=== PATIENT | male | born 1950 | race Hispanic/Latino ===

== ENCOUNTER 2022-05-22 11:11 | Inpatient (IN) | payer MEDICARE, OTHER ==
[2022-05-22] MEDS ORDERED: Diazepam 10 MG/2 ML SYRINGE ONE (11:27)
[2022-05-22] MEDS ORDERED: levETIRAcetam 500 MG/5 ML VIAL ONE (11:43)
[2022-05-22 11:52] LABS: Analyzer IN Cardio ER; Base Excess -13.3 mEq/L (-2.0 to +3.0); Calcium, Ionized (venous) 0.92 mmol/L (1.16-1.32); Chloride (VBG) 100 mmol/L (98-106); Potassium (VBG) 3.72 mmol/L (3.70-5.30); Sodium 131.8 mmol/L (133-146); pH (venous) 7.27 (7.32-7.43)
[2022-05-22 11:57] LABS: Actual Bicarbonate (HCO3v) 12 mEq/L (22-28)
[2022-05-22] MEDS ORDERED: Fosphenytoin Sodium 500 mg/10 ml Vial ONE ×2 (12:09→12:11)
[2022-05-22 12:17] LABS: #Lymphocytes 2.3 thou/uL (1.20-3.40); #Monocytes 0.5 thou/uL (0.11-0.59); #Neutrophils 4.3 thou/uL (1.40-6.50); %Basophils 0.6 % (0.0-1.0); %Eosinophils 0.4 % (0.0-10.0); %Lymphocytes 32.1 % (21.0-51.0); %Monocytes 6.3 % (0.0-10.0); %Neutrophils 60.6 % (42.0-75.0); Hemoglobin 13.5 g/dL (14.0-18.0); Mean Corpuscular HGB CONC 33.3 g/dL (32.0-36.0); Mean Corpuscular Hemoglobin 36.1 pg (27.0-31.0); Platelet Count 199 thou/uL (130-400); RBC Distribution Width 11.5 % (11.5-14.5); Red Blood Cell (RBC) Count 3.74 mill/uL (4.70-6.10); White Blood Cell (WBC) Count 7.1 thou/uL (4.8-10.8)
[2022-05-22 12:20] LABS: Carbamazepine-Tegretol Less than 1.9 ug/mL (4.0-12.0)
[2022-05-22 12:22] LABS: Acetaminophen Less than 10.0 mcg/mL (10.0-30.0); Alcohol Less than 10 mg/dL (Less than 10); CK (CPK) 387 U/L (30-200); Magnesium 1.9 mg/dL (1.6-2.6); Salicylate Less than 8.0 mg/dL (15.0-30.0)
[2022-05-22 12:25] LABS: ALT (SGPT) 44 U/L (8-55); AST (SGOT) 89 U/L (5-34); Albumin 4.5 g/dL (3.4-4.8); Alkaline Phosphatase 110 U/L (40-110); Anion Gap 25 mmol/L (10-20); BUN (Urea Nitrogen) 10 mg/dL (8.4-25.7); Bilirubin, Total 0.6 mg/dL (0.2-1.2); Calc. Creatinine Clearance 0 mL/min (70-130); Calcium 9.2 mg/dL (7.8-10.44); Carbon Dioxide 15 mmol/L (23-31); Chloride 100 mmol/L (98-107); Estimated GFR 82; Globulin 3.9 g/dL (2.4-3.5); Glucose 190 mg/dL (80-115); Potassium 3.7 mmol/L (3.5-5.1); Protein, Total 8.4 g/dL (5.8-8.1); Sodium 136 mmol/L (136-145)
[2022-05-22 12:33] LABS: INR-International Normal Ratio 1.1; PTT 30.8 sec (22.9-36.1); Prothrombin Time 14.1 sec (12.0-14.7)
[2022-05-22] MEDS ORDERED: Midazolam HCl 2 mg/2 ml Vial ONE (13:48)
[2022-05-22 14:04] LABS: Bilirubin Negative (Negative); Blood, Urine Negative (Negative); Clarity Clear (Clear); Glucose, Urine (Dipstick) Normal (Negative); Ketone, Urine Negative (Negative); Leukocyte Negative Leu/uL (Negative); Nitrite Negative (Negative); Protein, Urine (Dipstick) Negative (Neg-Trace); Urobilinogen Normal mg/dL (Less than 2); pH, Urine 6.5 (5.0-9.0)
[2022-05-22 14:12] LABS: Amphetamine Not Detected (NotDetected); Barbiturates Screen Detected (NotDetected); Benzodiazepine Screen Not Detected (NotDetected); Cocaine Metabolite Screen Not Detected (NotDetected); Methadone Not Detected (NotDetected); Methamphetamine Not Detected (NotDetected); Opiate Screen Not Detected (NotDetected); Oxycodone Screen Not Detected (NotDetected); Phencyclidine (PCP) Not Detected (NotDetected); THC/Cannabinoid Screen Not Detected (NotDetected); Tricyclic Screen Not Detected (NotDetected)
[2022-05-22] MEDS ORDERED: Multivitamins, Adult 10 ML, Thiamine HCl 100 MG, Folic Acid 1 MG in Dextrose 5 %-0.45 %... IV SCH (14:30)
[2022-05-22 15:06] LABS: Lactic Acid 1.4 mmol/L (0.5-2.2)
[2022-05-22 15:18] LABS: SARS-CoV-2 NAA Rapid Test Not Detected (NotDetected)
[2022-05-22] MEDS ORDERED: Sodium Chloride 0.65% Nasal 44 ML BOT EA NARE PRN (15:32)
[2022-05-22] MEDS ORDERED: Lorazepam 1 MG TAB PO PRN (15:32)
[2022-05-22] MEDS ORDERED: Labetalol HCl 100 MG/20 ML VIAL SLOW IVP PRN (15:32)
[2022-05-22] MEDS ORDERED: hydrALAZINE 20 MG/ML VIAL SLOW IVP PRN (15:32)
[2022-05-22] MEDS ORDERED: Moisturizing Cream (Eucerin) 113 GM JAR TOP PRN (15:32)
[2022-05-22] MEDS ORDERED: Ondansetron ODT 4 MG TAB PO PRN (15:32)
[2022-05-22] MEDS ORDERED: Electrolyte Replacement Protocol 1 EACH FS SCH (15:45)
[2022-05-22] MEDS ORDERED: Cepastat Lozenges 1 LOZ PO PRN (15:47)
[2022-05-22] MEDS ORDERED: Loperamide HCl 2 MG CAP PO PRN ×2 (15:47)
[2022-05-22] MEDS ORDERED: Diazepam 10 MG/2 ML SYRINGE IVP PRN (15:52)
[2022-05-22] MEDS ORDERED: Acetaminophen 325 MG Suppository ONE (16:06)
[2022-05-22] MEDS ORDERED: Acetaminophen 650 MG Suppository PR PRN (16:15)
[2022-05-22] MEDS ORDERED: Lorazepam 1 MG TAB ONE (16:38)
[2022-05-22 16:41] LABS: #Lymphocytes 1.1 thou/uL (1.20-3.40); #Monocytes 0.5 thou/uL (0.11-0.59); #Neutrophils 5.9 thou/uL (1.40-6.50); %Basophils 0.4 % (0.0-1.0); %Eosinophils 0.1 % (0.0-10.0); %Lymphocytes 14.3 % (21.0-51.0); %Monocytes 6.5 % (0.0-10.0); %Neutrophils 78.8 % (42.0-75.0); Mean Corpuscular HGB CONC 34.1 g/dL (32.0-36.0); Mean Corpuscular Hemoglobin 36.2 pg (27.0-31.0); Mean Platelet Volume 7.6 fL (7.4-10.4); Platelet Count 170 thou/uL (130-400); RBC Distribution Width 11.5 % (11.5-14.5); White Blood Cell (WBC) Count 7.5 thou/uL (4.8-10.8)
[2022-05-22] MEDS: Lorazepam 1 MG TAB PO SCH ×2 (16:42→22:02)
[2022-05-22 16:46] LABS: Bilirubin, Direct 0.2 mg/dL (0.1-0.3); Phosphorus 2.5 mg/dL (2.3-4.7)
[2022-05-22] MEDS ORDERED: PHENobarbital 32.4 MG TAB PO SCH (17:00)
[2022-05-22 17:22] VITALS: BMI 24.5
[2022-05-22] MEDS ORDERED: Sterile Water 10 ML ONE (17:32)
[2022-05-22] MEDS: PHENobarbital Sodium 65 MG/ML VIAL SLOW IVP SCH (17:39)
[2022-05-22] MEDS: Thiamine HCl 200 MG/2 ML VIAL SLOW IVP SCH (20:01)
[2022-05-22] MEDS: Lactated Ringer's 1,000 ML IV SCH (20:01)
[2022-05-22] MEDS: Acetaminophen 325 MG TAB PO PRN (20:10)
[2022-05-22] MEDS: Famotidine 20 MG TAB PO SCH (20:11)
[2022-05-22] MEDS: Fosphenytoin Sodium 200 MG in Sodium Chloride 0.9% 50 ML IVPB SCH (20:17)
[2022-05-22] MEDS ORDERED: Magnesium 2 GM/50 ML(in water) 2 GM in Premix Bag 1 BAG IVPB SCH (21:00)
[2022-05-22] MEDS: levETIRAcetam 500 MG/5 ML VIAL SLOW IVP SCH (22:02)
[2022-05-22 23:40] LABS: Syphilis Antibody INDETERMINATE (Nonreactive)
[2022-05-23] MEDS: PHENobarbital Sodium 65 MG/ML VIAL SLOW IVP SCH ×2 (01:40→10:41)
[2022-05-23] MEDS ORDERED: Sterile Water 10 ML ONE (01:45)
[2022-05-23 04:05] LABS: #Neutrophils 5.8 thou/uL (1.40-6.50); %Basophils 0.1 % (0.0-1.0); %Eosinophils 0.2 % (0.0-10.0); %Lymphocytes 22.7 % (21.0-51.0); %Monocytes 11.5 % (0.0-10.0); %Neutrophils 65.4 % (42.0-75.0); Hemoglobin 13.6 g/dL (14.0-18.0); Mean Corpuscular HGB CONC 34.5 g/dL (32.0-36.0); Mean Corpuscular Hemoglobin 36.5 pg (27.0-31.0); Mean Platelet Volume 7.8 fL (7.4-10.4); Platelet Count 156 thou/uL (130-400); RBC Distribution Width 11.5 % (11.5-14.5); Red Blood Cell (RBC) Count 3.71 mill/uL (4.70-6.10); White Blood Cell (WBC) Count 8.8 thou/uL (4.8-10.8)
[2022-05-23] MEDS: Lorazepam 1 MG TAB PO SCH ×4 (04:23→22:29)
[2022-05-23 05:19] LABS: ALT (SGPT) 31 U/L (8-55); AST (SGOT) 56 U/L (5-34); Albumin 3.6 g/dL (3.4-4.8); Alkaline Phosphatase 80 U/L (40-110); BUN (Urea Nitrogen) 7 mg/dL (8.4-25.7); Bilirubin, Total 0.8 mg/dL (0.2-1.2); Calc. Creatinine Clearance 81 mL/min (70-130); Calcium 8.4 mg/dL (7.8-10.44); Carbon Dioxide 18 mmol/L (23-31); Chloride 96 mmol/L (98-107); Estimated GFR 100; Globulin 3.6 g/dL (2.4-3.5); Glucose 112 mg/dL (80-115); Potassium 3.6 mmol/L (3.5-5.1); Protein, Total 7.2 g/dL (5.8-8.1); Sodium 128 mmol/L (136-145)
[2022-05-23 05:38] LABS: Anion Gap 18 mmol/L (10-20)
[2022-05-23] MEDS: Multivit, Therapeutic 1 TAB PO SCH (08:52)
[2022-05-23] MEDS: Folic Acid 1 MG TAB PO SCH (08:53)
[2022-05-23] MEDS: Famotidine 20 MG TAB PO SCH ×2 (08:53→21:05)
[2022-05-23] MEDS ORDERED: Sterile Water 10 ML VIAL FS SCH (09:00)
[2022-05-23] MEDS ORDERED: PHENobarbital Sodium 65 MG/ML VIAL SLOW IVP SCH (09:00)
[2022-05-23] MEDS: Fosphenytoin Sodium 200 MG in Sodium Chloride 0.9% 50 ML IVPB SCH ×2 (12:02→21:08)
[2022-05-23] MEDS: levETIRAcetam 500 MG/5 ML VIAL SLOW IVP SCH ×2 (12:02→21:05)
[2022-05-23] MEDS ORDERED: Lorazepam 1 MG TAB PO PRN (15:32)
[2022-05-23] MEDS: Lactated Ringer's 1,000 ML IV SCH (16:10)
[2022-05-23] MEDS: Thiamine HCl 200 MG/2 ML VIAL SLOW IVP SCH (16:11)
[2022-05-24 04:14] LABS: ALT (SGPT) 25 U/L (8-55); AST (SGOT) 44 U/L (5-34); Albumin 3.6 g/dL (3.4-4.8); Alkaline Phosphatase 71 U/L (40-110); Anion Gap 13 mmol/L (10-20); BUN (Urea Nitrogen) 10 mg/dL (8.4-25.7); Bilirubin, Total 0.8 mg/dL (0.2-1.2); Calc. Creatinine Clearance 78 mL/min (70-130); Calcium 8.8 mg/dL (7.8-10.44); Carbon Dioxide 24 mmol/L (23-31); Chloride 96 mmol/L (98-107); Estimated GFR 99; Globulin 3.4 g/dL (2.4-3.5); Glucose 93 mg/dL (80-115); Magnesium 2.1 mg/dL (1.6-2.6); Phosphorus 2.8 mg/dL (2.3-4.7); Potassium 3.2 mmol/L (3.5-5.1); Sodium 130 mmol/L (136-145)
[2022-05-24] MEDS: Lorazepam 1 MG TAB PO SCH ×2 (04:25→07:44)
[2022-05-24] MEDS: Potassium Chloride 20 MEQ in Premix Bag 1 BAG IVPB SCH ×2 (07:43→13:30)
[2022-05-24] MEDS: Famotidine 20 MG TAB PO SCH ×2 (07:44→20:39)
[2022-05-24] MEDS: Multivit, Therapeutic 1 TAB PO SCH (07:44)
[2022-05-24] MEDS: Folic Acid 1 MG TAB PO SCH (07:45)
[2022-05-24] MEDS: Fosphenytoin Sodium 200 MG in Sodium Chloride 0.9% 50 ML IVPB SCH (09:26)
[2022-05-24] MEDS: levETIRAcetam 500 MG/5 ML VIAL SLOW IVP SCH (13:31)
[2022-05-24] MEDS ORDERED: Lorazepam 1 MG TAB PO PRN (15:32)
[2022-05-24] MEDS ORDERED: Lorazepam 0.5 MG TAB PO SCH (15:45)
[2022-05-24] MEDS: Thiamine HCl 200 MG/2 ML VIAL SLOW IVP SCH (16:44)
[2022-05-24] MEDS: Acetaminophen 325 MG TAB PO PRN (20:40)
[2022-05-24] MEDS: levETIRAcetam 500 MG TAB PO SCH (20:40)
[2022-05-25 06:01] LABS: ALT (SGPT) 23 U/L (8-55); AST (SGOT) 31 U/L (5-34); Albumin 3.6 g/dL (3.4-4.8); Alkaline Phosphatase 77 U/L (40-110); Anion Gap 12 mmol/L (10-20); BUN (Urea Nitrogen) 10 mg/dL (8.4-25.7); Bilirubin, Total 0.5 mg/dL (0.2-1.2); Calc. Creatinine Clearance 75 mL/min (70-130); Calcium 8.6 mg/dL (7.8-10.44); Carbon Dioxide 25 mmol/L (23-31); Chloride 97 mmol/L (98-107); Estimated GFR 98; Globulin 3.4 g/dL (2.4-3.5); Glucose 110 mg/dL (80-115); Potassium 3.6 mmol/L (3.5-5.1); Sodium 130 mmol/L (136-145)
[2022-05-25] MEDS: Famotidine 20 MG TAB PO SCH ×2 (08:49→19:32)
[2022-05-25] MEDS: Folic Acid 1 MG TAB PO SCH (08:49)
[2022-05-25] MEDS: Thiamine 100 MG TAB PO SCH (08:50)
[2022-05-25] MEDS: levETIRAcetam 500 MG TAB PO SCH ×2 (08:50→19:31)
[2022-05-25] MEDS: Multivit, Therapeutic 1 TAB PO SCH (08:50)
[2022-05-25] MEDS ORDERED: Lorazepam 0.5 MG TAB PO PRN (15:32)
[2022-05-25] MEDS: Acetaminophen 325 MG TAB PO PRN (19:32)
[2022-05-25] MEDS ORDERED: FLU VACC QS2022-23(65YR UP)/PF 240 MCG/0.7 ML SYRINGE IM ONE (21:45)
[2022-05-26 07:31] LABS: ALT (SGPT) 20 U/L (8-55); AST (SGOT) 24 U/L (5-34); Albumin 3.5 g/dL (3.4-4.8); Alkaline Phosphatase 95 U/L (40-110); Anion Gap 13 mmol/L (10-20); BUN (Urea Nitrogen) 11 mg/dL (8.4-25.7); Bilirubin, Total 0.4 mg/dL (0.2-1.2); Calc. Creatinine Clearance 77 mL/min (70-130); Calcium 8.9 mg/dL (7.8-10.44); Carbon Dioxide 22 mmol/L (23-31); Chloride 101 mmol/L (98-107); Estimated GFR 98; Globulin 3.3 g/dL (2.4-3.5); Glucose 113 mg/dL (80-115); Potassium 3.6 mmol/L (3.5-5.1); Protein, Total 6.8 g/dL (5.8-8.1); Sodium 132 mmol/L (136-145)
[2022-05-26] MEDS: Famotidine 20 MG TAB PO SCH ×2 (09:02→20:21)
[2022-05-26] MEDS: Folic Acid 1 MG TAB PO SCH (09:03)
[2022-05-26] MEDS: Thiamine 100 MG TAB PO SCH (09:03)
[2022-05-26] MEDS: Multivit, Therapeutic 1 TAB PO SCH (09:03)
[2022-05-26] MEDS: levETIRAcetam 500 MG TAB PO SCH ×2 (09:03→20:21)
[2022-05-26] MEDS: Acetaminophen 325 MG TAB PO PRN ×2 (11:53→20:11)
[2022-05-26] MEDS: Bicillin LA 2.4 MILL.UNITS/4 ML SYRINGE IM SCH ×2 (18:27→18:33)
[2022-05-27 04:34] VITALS: TEMP 97.9
[2022-05-27] MEDS: levETIRAcetam 500 MG TAB PO SCH (08:10)
[2022-05-27] MEDS: Famotidine 20 MG TAB PO SCH (08:10)
[2022-05-27] MEDS: Multivit, Therapeutic 1 TAB PO SCH (08:10)
[2022-05-27] MEDS: Thiamine 100 MG TAB PO SCH (08:10)
[2022-05-27] MEDS: Folic Acid 1 MG TAB PO SCH (08:10)
[2022-05-27 08:31] VITALS: BP 118/74
[2022-05-27 09:08] LABS: ALT (SGPT) 20 U/L (8-55); AST (SGOT) 29 U/L (5-34); Albumin 3.9 g/dL (3.4-4.8); Alkaline Phosphatase 87 U/L (40-110); Anion Gap 12 mmol/L (10-20); BUN (Urea Nitrogen) 13 mg/dL (8.4-25.7); Bilirubin, Total 0.6 mg/dL (0.2-1.2); Calc. Creatinine Clearance 74 mL/min (70-130); Calcium 9.2 mg/dL (7.8-10.44); Carbon Dioxide 23 mmol/L (23-31); Chloride 103 mmol/L (98-107); Estimated GFR 97; Globulin 3.6 g/dL (2.4-3.5); Glucose 125 mg/dL (80-115); Potassium 3.9 mmol/L (3.5-5.1); Protein, Total 7.5 g/dL (5.8-8.1); Sodium 134 mmol/L (136-145)
[2022-05-27 09:30] LABS: Hep C IgG Ab Non-Reactive (NonReactive); Hep C Index 0.08 S/CO (0-0.79)
[2022-05-29 05:36] LABS: Hep B Surface AG-Rflx Sendout Negative (Negative); Hepatitis B Core Total Negative (Negative); Hepatitis B Surface AB-Sendout Non Reactive (.)
== END 2022-05-27 13:10 | DRG 101 ==
LOC: ERS 11:11 → ERHOLD 15:24 → IMCU/EMU 19:34 → T4-B 05-24 15:33
PROVIDERS: ADMIT Family Medicine; ATTEND Family Medicine
PROC: 4A10X4G Monitoring of Central Nervous Electrical Activity, Intraoperative, External Approach (ICD-10-PCS; principal; 2022-05-23)
DX: G40.901 Epilepsy, unspecified, not intractable, with status epilepticus (principal); F10.239 Alcohol dependence with withdrawal, unspecified; E87.20 Acidosis, unspecified; E87.1 Hypo-osmolality and hyponatremia; D64.9 Anemia, unspecified; A53.9 Syphilis, unspecified; Z20.822 Contact with and (suspected) exposure to COVID-19; Z86.73 Personal history of transient ischemic attack (TIA), and cerebral infarction without residual deficits
CPT/HCPCS: 36415; 36416; 70450; 71045; 80053; 80156; 80164; 80184; 80185; 80306; 80307; 81003; 82248; 82550; 82805; 83605; 83735; 84100; 84146; 84443; 84484; 85025; 85610; 85730; 86593; 86704; 86706; 86780; 86803; 87340; 93005; 93010; 94760; 95712; 95819; 95957; 96365; 96366; 96372; 96375; J1953; J2250; J2560; J3360; J3411; J3475; J3480; J7042; J7120; Q2009; U0002